=== PATIENT | female | born 1995 | race American Indian/Alaskan Native ===

== ENCOUNTER 2018-10-16 10:14 | Outpatient (CLI) | payer OTHER ==
--- NOTE | 2018-10-16 13:06 | Ultrasound Report ---
ULTRASOUND ABDOMEN, COMPLETE INDICATION: ABDOMINAL PAIN WITH NAUSEA/VOMITING. COMPARISON: None available. FINDINGS: PANCREAS: No significant abnormality. ABDOMINAL AORTA: No significant abnormality. IVC: No significant abnormality.. LIVER: No significant abnormality. GALLBLADDER: No significant abnormality. BILE DUCTS: No significant abnormality. Common bile duct measures 4.2 mm. KIDNEYS: Right: No significant abnormality Left: No significant abnormality SPLEEN: No significant abnormality. FREE FLUID: None. ADDITIONAL FINDINGS: None. IMPRESSION: No significant sonographic abnormality of the abdomen. Signer Name: Ellis Novoa MD Signed: 10/16/2018 1:02 PM Workstation Name: [id number]
--- NOTE | 2018-10-16 13:11 | Ultrasound Report ---
Transabdominal and transvaginal pelvic ultrasound INDICATION / CLINICAL INFORMATION: Right lower quadrant pain with nausea and vomiting. Irregular menstrual cycles. COMPARISON: None available. FINDINGS: Transabdominal: The uterus measures 5.3 x 2.9 x 3.5 cm. The endometrial stripe measures 4 mm AP. No f ibroids are seen. Neither ovary is identified. The appendix is not seen sonographically. No abnormal mass or fluid collection is identified. Images of the urinary bladder are normal. Transvaginal: The endometrial stripe measures 1.5 mm AP. No fibroids are seen. The right ovary measur es 4.0 x 2.3 x 3.6 cm and contains a 2.3 cm minimally complicated cyst. The left ovary measures 2.6 x 1.6 x 2.4 cm. No significant free fluid is seen. There is normal blood flow to both ovaries on Doppl er exam. IMPRESSION: 2.3 cm physiologic cyst in the right ovary. No free fluid or other significant abnormalit y. Signer Name: Ellis Novoa MD Signed: 10/16/2018 1:07 PM Workstation Name: [id number]
--- NOTE | 2018-10-18 15:06 | Ultrasound Report ---
LEFT BREAST ULTRASOUND HISTORY: 23-year-old with a palpable breast lump. COMPARISON: None. FINDINGS: Sonographic evaluation focused upon the 11:00 3 cm from the nipple location of the left carlito ast at the palpable lump. Ultrasound demonstrates an oval solid heterogeneous hypoechoic mass measuri ng 4.8 x 1.5 x 4.7 cm. Margins are relatively smooth and has an echogenic pseudocapsule. IMPRESSION: A solid 4.8 cm mass of the left breast at 11:00 3 cm from the nipple. Sonographic morphology suggests benign fibroadenoma. However, considering the relatively large size, recommend ultrasound-guided nee dle biopsy to confirm benignity. The results and the recommendation for biopsy were conveyed to the patient by the statistics teacher. BIRADS 4: Suspicious abnormality. Signer Name: Robbin Castaneda MD Signed: 10/16/2018 11:11 AM Workstation Name: [id number]
== END 2018-10-16 10:15 | disposition home or self-care (01) ==
LOC: US 10:14
PROVIDERS: ATTEND General Practice
DX: N83.201 Unspecified ovarian cyst, right side (principal); N63.22 Unspecified lump in the left breast, upper inner quadrant; R11.11 Vomiting without nausea
CPT/HCPCS: 76700; 76830; 76856

== ENCOUNTER 2018-10-23 10:22 | Outpatient (CLI) | payer OTHER ==
--- NOTE | 2018-10-23 13:13 | Ultrasound Report ---
ULTRASOUND-GUIDED NEEDLE CORE BIOPSY LEFT BREAST WITH CLIP PLACEMENT CLINICAL: 23-year-old with a 4.8 cm palpable left breast mass. FINDINGS: The procedure was explained to the patient and informed consent was obtained. Ultrasound demonstrated the previously identified mass at 11:00 4 cm from the nipple. I marked the breast with a felt tip marker and a timeout was called. The skin was prepped with Chloro -Prep and anesthetized with 1% lidocaine. Needle core biopsy was performed through tiny dermatotomy using ultrasound guidance, 2% lidocaine wit h epinephrine for deep anesthesia and a 14-gauge Achieve biopsy device. Four cores were obtained and placed in formalin. A clip was deployed within the mass. The patient tolerated the procedure well and there were no apparent convocations. Hemostasis was achi eved with minimal effort and a sterile dressing was applied. A post procedure mammogram was not performed. IMPRESSION: Uncomplicated ultrasound guided needle core biopsy with clip placement left breast. Signer Name: Robbin Castaneda MD Signed: 10/23/2018 1:08 PM Workstation Name: [id number]
== END 2018-10-23 10:23 | disposition home or self-care (01) ==
LOC: SPVWC 10:22
PROVIDERS: ATTEND General Practice
DX: D24.2 Benign neoplasm of left breast (principal)
CPT/HCPCS: 19083; 88305; A4648